=== PATIENT | male | born 1940 | race Caucasian/White ===

== ENCOUNTER → 2019-01-08 06:46 | Outpatient (CLI) | payer MEDICARE, OTHER, SELFPAY ==
--- NOTE | 2019-01-08 | DI.ECHO.S_ITS ---
[facility] +---------+ : : [address] [place] : : : : [id number] : : : : Phone: [phone]+ Echocardiogram Report + + :Name: TRAV FERRER Study Date: 01/08/2019 Height: 67 in : :[facility] Weight: 169 lb : : Gender: Male BSA: 1.9 m2 : :: 1940 Age: 78 yrs BP: 158/70 mmHg: :Reason For Study: Murmur : : Performed By: Santa Clarke : :Referring: SURINDER HALL : + + Interpretation Summary Mild concentric left ventricular hypertrophy with ejection fraction 60-65%. Grade I diastolic dysfunction. Severely dilated left atrium. Moderate to severely dilated right atrium. Severe aortic stenosis. The peak aortic velocity is 4.4 m/sec. The calculated aortic valve area is 0.7 cm2. Moderate mitral annular calcification. Mild tricuspid regurgitation. The right ventricular systolic pressure is estimated to be at least 38 mmHg based on an estimated right atrial pressure of 3 mm Hg. Procedure: A two-dimensional transthoracic echocardiogram with color flow and Doppler was performed. The study quality was technically good. There is no prior echocardiogram noted for this patient. The patient was in normal sinus rhythm during the exam. Left Ventricle: The left ventricle is normal in size. There is mild concentric left ventricular hypertrophy. The ejection fraction is estimated to be 60-65%. There are no focal wall motion abnormalities. Diastolic parameters suggest a relaxation abnormality of the left ventricle, consistent with probable normal filling pressures. Right Ventricle: The right ventricle grossly appears normal in size with probable normal systolic function. Atria: The left atrium is severely dilated. The right atrium is moderate to severely dilated. The interatrial septum is intact with no evidence for an atrial septal defect. Mitral Valve: The mitral valve is grossly normal. There is moderate mitral annular calcification. There is trace mitral regurgitation. Aortic Valve: There is severe aortic stenosis. The calculated aortic valve area is 0.7 cm2. The peak aortic velocity is 4.4 m/sec. The aortic valve mean gradient is 43 mmHg. Severity ratio is 0.23. There is trace aortic regurgitation. Tricuspid Valve: The tricuspid valve leaflets are thin and pliable. There is mild tricuspid regurgitation. The right ventricular systolic pressure is estimated to be at least 38 mmHg based on an estimated right atrial pressure of 3 mm Hg. Pulmonic Valve: The pulmonic valve is not well visualized. Great Vessels: The aortic root is normal size. The dimensions of the ascending aorta are normal. The aortic arch is normal in size. The IVC is of normal diameter and collapses greater than 50% with a sniff. This suggests a low right atrial pressure of 3 mm Hg. Pericardium/ Pleura There is no pericardial effusion. There is no pleural effusion. MMode/2D Measurements & Calculations LVIDd: 4.9 cm LVOT diam: 2.0 cm LVIDs: 3.0 cm Ao root diam: 3.6 cm FS: 38.2 % Aortic Jxn: 2.9 cm EPSS: 0.88 cm asc Aorta Diam: 3.1 cm IVSd: 0.90 cm Ao Arch Diam (Prox Trans): 2.9 cm LVPWd: 1.2 cm LV cruz. diameter/BSA (cm/m^2): 2.6 LV sys. diameter/BSA (cm/m^2): 1.6 LA dimension: 5.1 cm RA long axis: 5.1 cm LA A2 area: 32.7 cm2 RA area: 22.9 cm2 LA A4 area: 26.5 cm2 RA vol: 87.7 ml LA length (vol): 6.3 cm RA : 46.6 ml/m2 LA vol: 116.0 ml IVC diam: 1.5 cm LA vol index: 61.6 ml/m2 RVDd major: 6.8 cm RVD1 (basal): 4.2 cm RVD2 (mid): 3.8 cm Doppler Measurements & Calculations Ao V2 max: 440.4 cm/sec LVOT Max Bao: 95.3 cm/sec Ao V2 mean: 309.8 cm/sec LV V1 max P.6 mmHg Ao max P.6 mmHg LV V1 VTI: 27.8 cm Ao mean P.9 mmHg MARCOS(I,D): 0.75 cm2 Ao V2 VTI: 120.2 cm MARCOS(V,D): 0.70 cm2 sev ratio: 0.23 MARCOS indexed to BSA (cm^2/m^2): 0.40 MV E max bao: 119.1 cm/sec TR max bao: 297.1 cm/sec MV A max bao: 149.0 cm/sec TR max P.3 mmHg MV E/A: 0.80 PA V2 max: 90.3 cm/sec Med Peak E' Bao: 5.7 cm/sec PA V2 mean: 56.2 cm/sec E/E' med: 21.0 PA mean P.5 mmHg Lat Peak E' Bao: 5.3 cm/sec PA Accel Time: 0.17 sec E/E' lat: 22.6 E/e' average: 21.8 MV dec time: 0.41 sec MV P1/2t: 120.0 msec MVA(VTI): 2.0 cm2 MV V2 mean: 83.7 cm/sec MV P1/2t max bao: 119.3 cm/sec MV mean P.2 mmHg MVA(P1/2t): 1.8 cm2 MV V2 VTI: 45.0 cm SV(LVOT): 90.5 ml Electronically signed by: Lorena Zuñiga on Reading Physician:01/08/2019 10:43 AM
== END ==
PROVIDERS: Family Provider Family Medicine; PCP Family Medicine; Visit Provider Orthopaedic Surgery
DX: I08.2 Rheumatic disorders of both aortic and tricuspid valves (principal); R01.1 Cardiac murmur, unspecified
CPT/HCPCS: 93306

== ENCOUNTER 2019-02-16 19:18 | Emergency (ER) | payer MEDICARE, OTHER, SELFPAY ==
[2019-02-16 19:26] VITALS: BP 139/78; PULSE 76; RESP 18; TEMP 37; O2SAT 96
--- NOTE | 2019-02-16 19:42 | DI.US.S_ITS ---
PROCEDURE: US PERIPH VENOUS LOW EXTREM RT INDICATIONS: PHLEBITIS, RIGHT LEG PAIN TECHNIQUE: Real-time imaging, as well as color and pulse Doppler interrogation, were performed of the lower extremity deep veins from the inguinal ligament to the popliteal fossa. COMPARISON: [facility], , PVE UNILATERAL RIGHT, 09/11/2010, 13:29. FINDINGS: The common femoral, femoral and popliteal veins are patent. There is wall irregularity in the distal femoral vein and popliteal vein suspicious for chronic DVT. There is thrombosis of the greater saphenous vein. IMPRESSION: 1. 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 2. 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 The result was discussed with Dr. Rico. Dictated by: Lenin Yarbrough M.D. on 02/16/2019 at 21:36 Approved by: Lenin Yarbrough M.D. on 02/16/2019 at 21:45
--- NOTE | 2019-02-16 21:26 | ED_ITS ---
HPI - Extremity Problem General Chief complaint: Extremity Problem,Nontraumatic Stated complaint: Pain in upper leg Time Seen by Provider: 02/16/19 19:40 Source: patient and family Mode of arrival: ambulatory Limitations: no limitations History of Present Illness HPI Narrative: 78-year-old male former smoker with history of protein S deficiency and atrial fibrillation presents with multiple family members and a chief complaint of redness, warmth and tenderness to his right medial thigh in the absence of injury. The symptoms have been present over the past few days. He has extensive history of superficial thrombophlebitis and feels as if this is another occurrence. He has been on Coumadin chronically however recently had a carpal tunnel surgery on his left wrist and had not taken his Coumadin for a few days leading up to the surgery. His INR was measured earlier today and was noted to be 2.9. He denies systemic findings such as fever, chills nor nausea or vomiting. MD Complaint: extremity pain and extremity swelling Onset (ago): day(s) Pain Consistency: constant Location: right Quality: burning and aching Radiation: none Relieving factors: nothing Exacerbating factors: range of motion and palpation Associated symptoms: denies other symptoms Context: recent surgery/procedure and history of DVT Related Data Allergies Allergy/AdvReac Type Severity Reaction Status Date / Time No Known Drug Allergies Allergy Verified 02/16/19 19:30 Review of Systems Constitutional Denies chills, Denies fever(s), Denies lethargy and Denies weakness Eyes Denies change in vision, Denies eye discharge, Denies irritation and Denies loss of vision ENT Ears, Nose, Mouth, and Throat: Denies change in voice, Denies neck pain and Denies sore throat Cardiovascular Denies chest pain, Denies irregular heart rhythm, Denies lightheadedness, Denies palpitations, Denies dyspnea, Denies dyspnea on exertion and Denies orthopnea Respiratory Denies cough, Denies dyspnea, Denies dyspnea on exertion and Denies wheezing Gastrointestinal Gastrointestinal: Denies abdominal pain, Denies change in bowel habits, Denies diarrhea, Denies nausea and Denies vomiting Genitourinary Denies hematuria, Denies flank pain, Denies urinary incontinence and Denies urinary urgency Musculoskeletal Denies neck pain Integumentary/Breasts Denies pruritus, Reports erythema, Denies rash, Reports skin swelling and Denies wounds Neurologic Denies confusion, Denies loss of vision and Denies weakness Psychiatric Denies anxiety, Denies confusion, Denies depression, Denies homicidal ideation and Denies suicidal ideation Endocrine Denies palpitations Hematologic/Lymphatic Denies easy bruising Allergic/Immunologic Denies wheezing PFSH Social History Smoking Status: Former smoker Social History Smoking Status: Former smoker Exam Initial Vital Signs Initial Vital Signs: Vital Signs Temperature 98.6 F 02/16/19 19:26 Pulse Rate 76 02/16/19 19:26 Respiratory Rate 18 02/16/19 19:26 Blood Pressure 139/78 02/16/19 19:26 Pulse Oximetry 96 02/16/19 19:26 Course Orders Ordered: ED Orders 02/16/19 19:42 US perip venous low extrem rt Stat 02/16/19 19:56 Prothrombin Time INR Stat Vital Signs - 8 hr 02/16/19 21:57 Pulse Rate 65 Respiratory Rate 17 Blood Pressure 151/79 H Pulse Oximetry 94 MDM - Extremity (Nontraumatic) Lab Data Lab Results 02/16/19 Range/Units 19:56 PT 35.0 H (10.1-12.7) SECONDS INR 3.0 H (0.9-1.3) Imaging Data Venous US: Radiologist's impression: Mahesh Diaz Humberto 78 M 1940 [place] [address] Ultrasound Report Signed Patient: Mahesh Diaz RMR#: [id number] : 1940Acct:[id number] Age/Sex: 78 / MDate of Service: 02/16/19 Loc: ED Accession Number: [id number] Procedure: US [facility] venous low extrem rt Ordering Provider: Nicole Franklin P.A-C PROCEDURE: US PERIP VENOUS LOW EXTREM RT INDICATIONS: PHLEBITIS, RIGHT LEG PAIN TECHNIQUE: Real-time imaging, as well as color and pulse Doppler interrogation, were performed of the lower extremity deep veins from the inguinal ligament to the popliteal fossa. COMPARISON: [facility], , PVE UNILATERAL RIGHT, 09/11/2010, 13:29. FINDINGS: The common femoral, femoral and popliteal veins are patent. There is wall irregularity in the distal femoral vein and popliteal vein suspicious for chronic DVT. There is thrombosis of the greater saphenous vein. IMPRESSION: 1. 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 2. 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 The result was discussed with Dr. Rico. Dictated by: Lenin Yarbrough M.D. on 02/16/2019 at 21:36 Approved by: Lenin Yarbrough M.D. on 02/16/2019 at 21:45 [facility] Narrative Medical decision making narrative: 78-year-old male with history of protein S deficiency and chronic anticoagulation presents with redness, pain and warmth in the absence of injury. Imaging nose acute and chronic superficial occlusions. Acute presentation is most likely due to the his forced drug holiday as opposed to a failure in the medication. He is given return precautions and encouraged to follow closely with his provider. He has had his questions answered to his apparent satisfaction Discharge Plan Departure Patient Disposition: Home Clinical Impression: Superficial thrombophlebitis Discharge Date/Time: 02/16/19 21:58 Interventions: ED Discharge Assessment Last Done: 02/16/19 21:57 Instructions: DI for Superficial Thrombophlebitis Activity Restrictions/Additional Instructions: *You have been diagnosed with [acute superficial thrombophlebitis secondary to subtherapeutic INR] *What to do: *Take medications as directed *Follow up with your primary care provider in 2-3 days, call for an appointment. Let them know you were seen in the Emergency Department and that we ask that you be seen in follow up *Return to ER if you should have any new, worsening or concerning symptoms Referrals: Matthew Poe MD [Primary Care Provider] -
[2019-02-16 21:57] VITALS: BP 151/79; PULSE 65; RESP 17; O2SAT 94
== END 2019-02-16 21:58 | disposition home or self-care (01) ==
PROVIDERS: Internal Medicine; Emergency Provider Emergency Medicine; Family Provider Family Medicine; PCP Family Medicine
DX: I80.8 Phlebitis and thrombophlebitis of other sites (principal)
CPT/HCPCS: 36415; 85610; 93971; 99282; 99283

== ENCOUNTER 2020-10-12 16:15 | Observation (INO) | payer MEDICARE, OTHER, SELFPAY ==
[2020-10-12] VITALS (10 sets, daily range): BP systolic 118–153; BP diastolic 56–96; PULSE 60–86; RESP 18–20; TEMP 36.4–36.8; O2SAT 92–97; BMI 23.6
--- NOTE | 2020-10-12 16:28 | DI.US.S_ITS ---
PROCEDURE: US PERIPH VENOUS LOW EXTREM LT INDICATIONS: LEG SWELLING/REDNESS. PROTEIN S DEFICIENCY. HISTORY OF DVT. TECHNIQUE: Real-time imaging, as well as color and pulse Doppler interrogation, were performed of the lower extremity deep veins from the inguinal ligament to the popliteal fossa. COMPARISON: None. FINDINGS: Echogenic probable chronic nonocclusive minimal wall thrombus in the left common femoral vein. Adherent wall thrombus in the upper thigh and mid thigh portion of the femoral vein (previously referred to as superficial femoral vein), consistent with chronic thrombus. No clearly acute deep vein clot identified. Multiple calf varicosities are acutely thrombosed. IMPRESSION: 1. Nonocclusive clot in the left common femoral vein and left femoral vein (previously referred to as superficial femoral vein) is likely chronic. No definite acute deep vein clot. 2. Superficial thrombosis involving multiple calf varicosities. Dictated by: Antonio Alexander M.D. on 10/12/2020 at 16:57 Approved by: Antonio Alexander M.D. on 10/12/2020 at 17:02
[2020-10-12 16:55] LABS: Add Manual Diff / Slide Review NO; Basophils Absolute Auto 100 /uL (0-100); Basophils Percent Auto 0.7 % (0-2); Eosinophils Absolute Auto 100 /uL (0-450); Eosinophils Percent Auto 1.7 % (2-4); Hematocrit 41.8 % (41-53); Hemoglobin 14.2 g/dL (13.5-17.5); Lymphocytes Absolute Auto 1500 /uL (1100-4500); Lymphocytes Percent Auto 18.8 % (25-40); Mean Corpuscular HGB Conc 34.1 % (30-36); Mean Corpuscular Volume 90.9 fL (80-100); Monocytes Absolute Auto 1000 /uL (0-900); Monocytes Percent Auto 12.4 % (3-14); Neutrophils Absolute Auto 5100 /uL (1500-7000); Neutrophils Percent Auto 66.4 % (50-75); Platelet Count 227 X10^3/uL (150-400); Red Cell Distribution Width 15.3 % (11.6-14.8); White Blood Cell Count 7.7 X10^3/uL (4.5-11.0)
[2020-10-12 16:58] LABS: INR 2.3 (0.9-1.3); Prothrombin Time 26.1 SECONDS (10.1-12.7)
[2020-10-12 17:00] LABS: PTT Partial Thromboplastin Tim 38 SECONDS (26.4-36.2)
[2020-10-12 17:03] LABS: Alanine Aminotransferase 13 IU/L (<50); Albumin 3.8 g/dL (3.5-5.0); Albumin Globulin Ratio 1.1 (1.0-2.8); Alkaline Phosphatase 76 U/L (38-126); Aspartate Aminotransferase 20 IU/L (17-59); BUN Creatinine Ratio 13.8 (6-22); Bilirubin Total 0.4 mg/dL (0.2-1.3); Blood Urea Nitrogen 17 mg/dL (9-20); Calcium 9.1 mg/dL (8.4-10.2); Carbon Dioxide 25 mmol/L (22-32); Chloride 106 mmol/L (98-107); Estimated Glomerular Filt Rate 56.5 mL/min (>60); Globulin 3.6 g/dL (1.7-4.1); Glucose 233 mg/dL (80-110); HEMOLYSIS < 15 (0-50); Potassium 3.6 mmol/L (3.4-5.1); Sodium 138 mmol/L (137-145); Total Protein 7.4 g/dL (6.3-8.2)
--- NOTE | 2020-10-12 17:25 | ED_ITS ---
HPI - Extremity Injury (Lower) <MILLI Henson - Last Filed: 10/12/20 19:19> General Chief Complaint: Extremity Injury, Lower Stated Complaint: states left leg DVT Time Seen by Provider: 10/12/20 16:17 Source: patient Mode of arrival: Ambulatory Limitations: no limitations History of Present Illness HPI Narrative: The patient is a delightful 80-year-old male current smoker with history of protein S deficiency on Coumadin who presents with a chief complaint of a possible DVT in his left leg. States he has a history of clots. He states he most recently had a deep vein thrombosis in the , though has had multiple superficial clots since. He denies any recent breaks in his Coumadin dosing. He most recently had his INR checked at 2.4 last week. However he has had erythema and pain to palpation and swelling of his left lower leg for the past 3 days. He denies any chest pain or shortness of breath. He does wear compression sock which she states helps. He states gets more swollen after he walks on it. The patient states that the only medications he takes daily are amlodipine, Coumadin, vitamin-D and an allergy medicine. His primary care provider is Dr Poe. He has had a knee replacement and carpal tunnel surgery Related Data Home Medications Medication Instructions Recorded Confirmed amlodipine 5 mg PO DAILY 10/12/20 10/12/20 cholecalciferol (vitamin D3) 25 mcg PO DAILY 10/12/20 10/12/20 [Vitamin D3] diphenhydramine HCl [Benadryl] 25 mg PO DAILY 10/12/20 10/12/20 vit A-vit C-vit [id number] [Eye 1 tab PO DAILY 10/12/20 10/12/20 Vitamin and Minerals] warfarin 7.5 mg PO DAILY 10/12/20 10/12/20 Allergies Allergy/AdvReac Type Severity Reaction Status Date / Time No Known Drug Allergies Allergy Verified 10/12/20 16:24 Review of Systems <MILLI Henson - Last Filed: 10/12/20 19:19> Review of Systems Narrative: GENERAL: Denies chills, fatigue, malaise, fever, sweats. HEENT: Denies sinus pain, ear pain, sore throat, difficulty swallowing, dizziness. RESPIRATORY: Denies dyspnea, cough, wheezing, hemoptysis, sputum. CARDIOVASCULAR: Denies chest pain, palpitations, orthopnea, edema, GASTROINTESTINAL: Denies nausea, vomiting, abdominal pain, diarrhea, constipation, melena. : Denies dysuria, frequency, incontinence, hematuria, urinary retention. MUSCULOSKELETAL: See HPI SKIN: See HPI NEUROLOGIC: Denies weakness, headache, numbness, change in speech, confusion, seizures, incoordination. PSYCHIATRIC: No concerning psychosocial issues. 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 DVT (deep venous thrombosis) Left leg swelling Protein S deficiency Superficial thrombophlebitis Surgical History (Updated 10/12/20 @ 23:19 by JOCELYNE Rivers) History of carpal tunnel surgery History of total knee arthroplasty Family History (Updated 10/12/20 @ 23:21 by JOCELYNE Rivers) Father No significant past medical history Mother Protein S deficiency Son Protein S deficiency Brother Protein S deficiency Pulmonary embolism Social History household members: none Smoking Status: Former smoker Smoking Status: Former smoker alcohol intake frequency: 0-2 drinks per day Substance Use Type: does not use Exam <MADELINE Henson- - Last Filed: 10/12/20 19:19> Narrative Exam Narrative: GENERAL: This is a well-nourished, well-developed patient, in no acute distress HEAD: Atraumatic. Normocephalic. No temporal or scalp tenderness. EYES: Pupils equal round and reactive. Extraocular motions intact. No scleral icterus. No injection or drainage. ENT: Nose without bleeding, purulent drainage or septal hematoma. Wearing a mask. Airway patent. NECK: Trachea midline. No JVD or lymphadenopathy. Supple, nontender, no meningeal signs. CARDIOVASCULAR: Regular rate and regular rhythm RESPIRATORY: Clear to auscultation. Breath sounds equal bilaterally. No wheezes, rales, or rhonchi. No cough. No increased respiratory effort. No accessory muscle use. EXTREMITIES: Line and erythema and pain to palpation noted on medial aspect of left lower leg, extending from ankle almost to the knee. Positive pedal pulses. BACK: Nontender without deformity or crepitance. No flank tenderness. NEURO: AOx3. SKIN: See extremity exam Initial Vital Signs Initial Vital Signs: Vital Signs Temperature 97.5 F L 10/12/20 16:17 Pulse Rate 86 10/12/20 16:17 Respiratory Rate 18 10/12/20 16:17 Blood Pressure 153/76 H 10/12/20 16:17 Pulse Oximetry 94 10/12/20 16:17 <Katie Chavarria MD - Last Filed: 10/13/20 02:18> Initial Vital Signs Initial Vital Signs: Vital Signs Temperature 97.5 F L 10/12/20 16:17 Pulse Rate 86 10/12/20 16:17 Respiratory Rate 18 10/12/20 16:17 Blood Pressure 153/76 H 10/12/20 16:17 Pulse Oximetry 94 10/12/20 16:17 Scores <MILLI Henson - Last Filed: 10/12/20 19:19> GCS [place] coma scale eye opening: Spontaneous [place] coma scale verbal response: Orientated [place] coma scale motor response: Obey commands [place] coma scale total score: 15 Course <MILLI Henson - Last Filed: 10/12/20 19:19> Orders Ordered: ED Orders 10/12/20 17:41 CT angio chest PE protocol Stat 10/12/20 17:55 COVID19 Stat Acetaminophen (Acetaminophen 325 Mg Tablet) 650 mg PO Q6HR PRN PRN Reason: Fever/Mild Pain (1-3) Al Hydrox/Mg Hydrox/Simethicone (Mag Hydrox/Alum/Simeth 30 Ml Udc) 30 ml PO Q6HR PRN PRN Reason: Dyspepsia Amlodipine Besylate (Amlodipine 5 Mg Tablet) 5 mg PO DAILY [facility] Bisacodyl (Bisacodyl 10 Mg Supp) 10 mg [place] DAILY PRN PRN Reason: Constipation Calcium Carbonate (Calcium Carbonate 500 Mg Tab) 1,000 mg PO Q4HR PRN PRN Reason: Dyspepsia Dextrose (Dextrose 50 % In Water 25 Gm/50 Ml Syringe) 25 gm IV PRN PRN; Protocol PRN Reason: Hypoglycemia Docusate Sodium (Docusate 100 Mg Capsule) 100 mg PO BID PRN PRN Reason: Constipation Heparin Sodium/Dextrose (Heparin Drip) 25,000 unit in 500 mls @ 24 mls/hr IV CONT [facility]; Protocol Last Admin: 10/12/20 19:35 Dose: 1,200 units/hr, 24 mls/hr Documented by: ANASTASIA Insulin Aspart (Insulin Aspart 100 Unit/Ml Insuln Pen) 0 unit SUBCUT ACHS [facility]; Protocol Last Admin: 10/12/20 21:14 Dose: Not Given Documented by: ANASTASIA Naloxone HCl (Naloxone 0.4 Mg/Ml Vial) 0.2 mg IV Q2MIN PRN PRN Reason: Opiate Reversal Ondansetron HCl (Ondansetron 4 Mg/2 Ml Inj) 4 mg IV Q8HR PRN PRN Reason: Nausea And Vomiting Oxycodone HCl (Oxycodone Ir 5 Mg Tablet) 5 mg PO Q6HR PRN PRN Reason: Pain, Moderate (4-6) Sodium Chloride (Sodium Chloride 0.9% Flush) 10 ml IV PRN PRN PRN Reason: Flush Sodium Chloride (Sodium Chloride 0.9% Flush) 10 ml IV BID [facility] Last Admin: 10/12/20 21:04 Dose: Not Given Documented by: ANASTASIA Warfarin Sodium (Warfarin 5 Mg Tablet) 7.5 mg PO DAILY@1700 [facility] Discontinued Medications Heparin Sodium/Dextrose (Heparin Drip) 25,000 unit in 500 mls @ 24 mls/hr IV CONT [facility]; Protocol Last Titration: 10/12/20 19:43 Dose: 0 units/hr, 0 mls/hr Documented by: Admin: 10/12/20 18:52 Dose: 1,200 units/hr, 24 mls/hr Documented by: TONE Warfarin Sodium (Warfarin 5 Mg Tablet) 7.5 mg PO NOW ONE Stop: 10/12/20 23:00 Reevaluation(s) Reevaluation #1: I discussed with the patient that he had a positive ultrasound for DVT, suggested CT to evaluate for pulmonary embolism, likelihood further anticoagulation possible admission. He is okay without as that is why he came to the hospital today. Time: 17:44 Vital Signs Vital signs: Vital Signs - 8 hr 10/12/20 18:30 Pulse Rate 64 Pulse Oximetry 95 <Katie Chavarria MD - Last Filed: 10/13/20 02:18> Orders Ordered: ED Orders 10/12/20 17:41 CT angio chest PE protocol Stat 10/12/20 17:55 COVID19 Stat Acetaminophen (Acetaminophen 325 Mg Tablet) 650 mg PO Q6HR PRN PRN Reason: Fever/Mild Pain (1-3) Al Hydrox/Mg Hydrox/Simethicone (Mag Hydrox/Alum/Simeth 30 Ml Udc) 30 ml PO Q6HR PRN PRN Reason: Dyspepsia Amlodipine Besylate (Amlodipine 5 Mg Tablet) 5 mg PO DAILY [facility] Bisacodyl (Bisacodyl 10 Mg Supp) 10 mg WA DAILY PRN PRN Reason: Constipation Calcium Carbonate (Calcium Carbonate 500 Mg Tab) 1,000 mg PO Q4HR PRN PRN Reason: Dyspepsia Dextrose (Dextrose 50 % In Water 25 Gm/50 Ml Syringe) 25 gm IV PRN PRN; Protocol PRN Reason: Hypoglycemia Docusate Sodium (Docusate 100 Mg Capsule) 100 mg PO BID PRN PRN Reason: Constipation Heparin Sodium/Dextrose (Heparin Drip) 25,000 unit in 500 mls @ 24 mls/hr IV CONT [facility]; Protocol Last Admin: 10/12/20 19:35 Dose: 1,200 units/hr, 24 mls/hr Documented by: LVCHAYITO Insulin Aspart (Insulin Aspart 100 Unit/Ml Insuln Pen) 0 unit SUBCUT ACHS [facility]; Protocol Last Admin: 10/12/20 21:14 Dose: Not Given Documented by: LVAZQUE Naloxone HCl (Naloxone 0.4 Mg/Ml Vial) 0.2 mg IV Q2MIN PRN PRN Reason: Opiate Reversal Ondansetron HCl (Ondansetron 4 Mg/2 Ml Inj) 4 mg IV Q8HR PRN PRN Reason: Nausea And Vomiting Oxycodone HCl (Oxycodone Ir 5 Mg Tablet) 5 mg PO Q6HR PRN PRN Reason: Pain, Moderate (4-6) Sodium Chloride (Sodium Chloride 0.9% Flush) 10 ml IV PRN PRN PRN Reason: Flush Sodium Chloride (Sodium Chloride 0.9% Flush) 10 ml IV BID [facility] Last Admin: 10/12/20 21:04 Dose: Not Given Documented by: LVAZQUE Warfarin Sodium (Warfarin 5 Mg Tablet) 7.5 mg PO DAILY@1700 [facility] Discontinued Medications Heparin Sodium/Dextrose (Heparin Drip) 25,000 unit in 500 mls @ 24 mls/hr IV CONT [facility]; Protocol Last Titration: 10/12/20 19:43 Dose: 0 units/hr, 0 mls/hr Documented by: Admin: 10/12/20 18:52 Dose: 1,200 units/hr, 24 mls/hr Documented by: TONE Warfarin Sodium (Warfarin 5 Mg Tablet) 7.5 mg PO NOW ONE Stop: 10/12/20 23:00 Vital Signs Vital signs: Vital Signs - 8 hr 10/12/20 18:30 Pulse Rate 64 Pulse Oximetry 95 MDM - Extremity Injury (Lower) <MADELINE Henson- - Last Filed: 10/12/20 19:19> Lab Data Attestation: I reviewed the patient's lab results. Result diagrams: 10/12/20 16:40 10/12/20 16:40 Labs: Lab Results 10/12/20 10/12/20 10/12/20 Range/Units 16:40 16:40 16:40 WBC 7.7 (4.5-11.0) X10^3/uL RBC 4.60 (4.5-5.9) X10^6/uL Hgb 14.2 (13.5-17.5) g/dL Hct 41.8 (41-53) % MCV 90.9 (80-100) fL MCH 31.0 (26-34) PG MCHC 34.1 (30-36) % RDW 15.3 H (11.6-14.8) % Plt Count 227 (150-400) X10^3/uL Neut % (Auto) 66.4 (50-75) % Lymph % (Auto) 18.8 L (25-40) % [place] % (Auto) 12.4 (3-14) % Eos % (Auto) 1.7 L (2-4) % Baso % (Auto) 0.7 (0-2) % Neut # (Auto) 5100 (0662-6007) /uL Lymph # (Auto) 1500 (5625-4142) /uL [place] # (Auto) 1000 H (0-900) /uL Eos # (Auto) 100 (0-450) /uL Baso # (Auto) 100 (0-100) /uL PT 26.1 H (10.1-12.7) SECONDS INR 2.3 H (0.9-1.3) APTT 38 H (26.4-36.2) SECONDS Sodium 138 (137-145) mmol/L Potassium 3.6 (3.4-5.1) mmol/L Chloride 106 (98-107) mmol/L Carbon Dioxide 25 (22-32) mmol/L BUN 17 (9-20) mg/dL Creatinine 1.23 (0.66-1.25) mg/dL Estimated GFR 56.5 L (>60) mL/min BUN/Creatinine Ratio 13.8 (6-22) Glucose 233 H (80-110) mg/dL Calcium 9.1 (8.4-10.2) mg/dL Magnesium (1.6-2.3) mg/dL Total Bilirubin 0.4 (0.2-1.3) mg/dL AST 20 (17-59) IU/L ALT 13 (<50) IU/L Alkaline Phosphatase 76 (38-126) U/L Total Protein 7.4 (6.3-8.2) g/dL Albumin 3.8 (3.5-5.0) g/dL Globulin 3.6 (1.7-4.1) g/dL Albumin/Globulin Ratio 1.1 (1.0-2.8) SARS-CoV-2 (PCR) (Negative) 10/12/20 10/12/20 Range/Units 16:40 17:55 WBC (4.5-11.0) X10^3/uL RBC (4.5-5.9) X10^6/uL Hgb (13.5-17.5) g/dL Hct (41-53) % MCV (80-100) fL MCH (26-34) PG MCHC (30-36) % RDW (11.6-14.8) % Plt Count (150-400) X10^3/uL Neut % (Auto) (50-75) % Lymph % (Auto) (25-40) % [place] % (Auto) (3-14) % Eos % (Auto) (2-4) % Baso % (Auto) (0-2) % Neut # (Auto) (4346-4495) /uL Lymph # (Auto) (0038-6040) /uL [place] # (Auto) (0-900) /uL Eos # (Auto) (0-450) /uL Baso # (Auto) (0-100) /uL PT (10.1-12.7) SECONDS INR (0.9-1.3) APTT (26.4-36.2) SECONDS Sodium (137-145) mmol/L Potassium (3.4-5.1) mmol/L Chloride (98-107) mmol/L Carbon Dioxide (22-32) mmol/L BUN (9-20) mg/dL Creatinine (0.66-1.25) mg/dL Estimated GFR (>60) mL/min BUN/Creatinine Ratio (6-22) Glucose (80-110) mg/dL Calcium (8.4-10.2) mg/dL Magnesium 2.2 (1.6-2.3) mg/dL Total Bilirubin (0.2-1.3) mg/dL AST (17-59) IU/L ALT (<50) IU/L Alkaline Phosphatase (38-126) U/L Total Protein (6.3-8.2) g/dL Albumin (3.5-5.0) g/dL Globulin (1.7-4.1) g/dL Albumin/Globulin Ratio (1.0-2.8) SARS-CoV-2 (PCR) Negative (Negative) Imaging Data US - DVT: Radiologist's Impression: [address] [place] [id number] ReportSigned Patient: Mahesh Diaz R#: [id number]: 1940Acct:[id number]/Sex: 80 / MDate of Service: 10/12/20Loc: EDAccession Number: [id number] Procedure: US periph venous low extrem lt Ordering Provider: Lolly Orellana PROCEDURE: US PERIPH VENOUS LOW EXTREM LT INDICATIONS: LEG SWELLING/REDNESS. PROTEIN S DEFICIENCY. HISTORY OF DVT. TECHNIQUE: Real-time imaging, as well as color and pulse Doppler interrogation, were performed of the lower extremity deep veins from the inguinal ligament to the popliteal fossa. COMPARISON: None. FINDINGS: Echogenic probable chronic nonocclusive minimal wall thrombus in the left common femoral vein. Adherent wall thrombus in the upper thigh and mid thigh portion of the femoral vein (previously referred to as superficial femoral vein), consistent with chronic thrombus. No clearly acute deep vein clot identified. Multiple calf varicosities are acutely thrombosed. IMPRESSION: 1. Nonocclusive clot in the left common femoral vein and left femoral vein (previously referred to as superficial femoral vein) is likely chronic. No definite acute deep vein clot. 2. Superficial thrombosis involving multiple calf varicosities. Dictated by: Antonio Alexander M.D. on 10/12/2020 at 16:57 Approved by: Antonio Alexander M.D. on 10/12/2020 at 17:02 Chest x-ray: Radiologist's Impression: [address] [id number] Scan ReportSigned Patient: Mahesh Diaz RMR#: [id number]: 1940Acct:[id number]/Sex: 80 / MDate of Service: 10/12/20Loc: [id number] Number: [id number] Procedure: CT angio chest PE protocol Ordering Provider: Lolly Orellana [facility] PROCEDURE: CT ANGIO CHEST PE PROTOCOL INDICATIONS: + dvt, protein s, 92% RA TECHNIQUE: After the administration of intravenous contrast, 2 mm thick sections acquired from the pulmonary apices to the posterior costophrenic angles. 3-dimensional maximum intensity projection (MIP) coronal and sagittal reformats were then acquired through the thorax. For radiation dose reduction, the following was used: automated exposure control, adjustment of mA and/or kV according to patient size. COMPARISON: None. FINDINGS: Image quality: Excellent. Pulmonary arteries: Pulmonary arteries are normal in size, and demonstrate no intraluminal filling defects to suggest central pulmonary embolism. Lungs and pleura: Irregular peripheral subpleural patchy airspace opacity mixed with small cystic changes is present in the posterolateral right lower lung along with a course granuloma. Minor atelectasis in the left posterior lower lobe. No pleural effusions or pneumothorax. There is a 6 mm endobronchial nodule in the right mainstem bronchus along the posterior wall versus dependent mucus. Central and peripheral airways are otherwise patent. Mediastinum: Heart size is moderately enlarged with heavy coronary artery calc ification, aortic valvular, and mitral annular calcification. No pericardial effusion. There are several nonenlarged calcified mediastinal and right hilar lymph nodes. No mediastinal or hilar adenopathy. Thoracic aorta is normal in caliber and enhancement. Esophagus is normal in caliber, without hiatal hernia. Bones and chest wall: No suspicious bony lesions. There is a healing deformity of the mid sternum. There is bridging callus along the inner cortex. Ribs and thoracic spine appear intact throughout. Thyroid gland is normal. No axillary or supraclavicular adenopathy. Abdomen: Visualized upper abdomen demonstrates granulomatous changes present in the spleen, a cystic mass in the left upper quadrant of uncertain etiology, and heavy atherosclerosis. IMPRESSION: 1. No pulmonary emboli. 2. Solid and cystic airspace disease is present at the posterolateral right lung base suggesting infection or inflammation. No pleural effusion. 3. Mild cardiomegaly with coronary and valvular calcification. 4. Exposure of remote granulomatous disease. 5. 6 mm right mainstem endobronchial nodule, most likely mucous. Follow-up chest CT after resolution of acute illness is recommended. Dictated by: Yahaira Gipson M.D. on 10/12/2020 at 18:46 Approved by: Yahaira Gipson M.D. on 10/12/2020 at 18:56 [facility] Narrative Medical decision making narrative: The patient is an 80-year-old male with history of protein S deficiency who presents with a chief complaint of pain and swelling of his left lower leg. His INR is in his therapeutic range today at 2.3. Ultrasound is concerning for multiple superficial thromboses as well as an acute versus chronic femoral vein clot. However the patient has recently been symptomatic over the past 3 days. I spoke with Dr. Barber of the hospitalists regarding the patient, we elected to admit him to inpatient status. Per hospitalist a preference, he was started on a heparin drip with no bolus as he is on Coumadin therapeutic range at this point in time. Per [facility] policy for DVT, he was started at 1200 units per hour. CTA was obtained to help rule out pulmonary embolism given his ultrasound findings, and this was pending upon acceptance for admission. Ruff test is negative. The patient states understanding and appreciation. No questions or concerns regarding admission. He has been hemodynamically stable throughout his stay in the ER, very interactive and pleasant. <Katie Chavarria MD - Last Filed: 10/13/20 02:18> Lab Data Labs: Lab Results 03/07/21 03/07/21 03/07/21 Range/Units 16:40 16:40 16:40 WBC 7.7 (4.5-11.0) X10^3/uL RBC 4.60 (4.5-5.9) X10^6/uL Hgb 14.2 (13.5-17.5) g/dL Hct 41.8 (41-53) % MCV 90.9 (80-100) fL MCH 31.0 (26-34) PG MCHC 34.1 (30-36) % RDW 15.3 H (11.6-14.8) % Plt Count 227 (150-400) X10^3/uL Neut % (Auto) 66.4 (50-75) % Lymph % (Auto) 18.8 L (25-40) % [place] % (Auto) 12.4 (3-14) % Eos % (Auto) 1.7 L (2-4) % Baso % (Auto) 0.7 (0-2) % Neut # (Auto) 5100 (4404-4118) /uL Lymph # (Auto) 1500 (7826-3141) /uL [place] # (Auto) 1000 H (0-900) /uL Eos # (Auto) 100 (0-450) /uL Baso # (Auto) 100 (0-100) /uL PT 26.1 H (10.1-12.7) SECONDS INR 2.3 H (0.9-1.3) APTT 38 H (26.4-36.2) SECONDS Sodium 138 (137-145) mmol/L Potassium 3.6 (3.4-5.1) mmol/L Chloride 106 (98-107) mmol/L Carbon Dioxide 25 (22-32) mmol/L BUN 17 (9-20) mg/dL Creatinine 1.23 (0.66-1.25) mg/dL Estimated GFR 56.5 L (>60) mL/min BUN/Creatinine Ratio 13.8 (6-22) Glucose 233 H (80-110) mg/dL Calcium 9.1 (8.4-10.2) mg/dL Magnesium (1.6-2.3) mg/dL Total Bilirubin 0.4 (0.2-1.3) mg/dL AST 20 (17-59) IU/L ALT 13 (<50) IU/L Alkaline Phosphatase 76 (38-126) U/L Total Protein 7.4 (6.3-8.2) g/dL Albumin 3.8 (3.5-5.0) g/dL Globulin 3.6 (1.7-4.1) g/dL Albumin/Globulin Ratio 1.1 (1.0-2.8) SARS-CoV-2 (PCR) (Negative) 10/12/20 10/12/20 Range/Units 16:40 17:55 WBC (4.5-11.0) X10^3/uL RBC (4.5-5.9) X10^6/uL Hgb (13.5-17.5) g/dL Hct (41-53) % MCV (80-100) fL MCH (26-34) PG MCHC (30-36) % RDW (11.6-14.8) % Plt Count (150-400) X10^3/uL Neut % (Auto) (50-75) % Lymph % (Auto) (25-40) % [place] % (Auto) (3-14) % Eos % (Auto) (2-4) % Baso % (Auto) (0-2) % Neut # (Auto) (0739-3814) /uL Lymph # (Auto) (3520-9557) /uL [place] # (Auto) (0-900) /uL Eos # (Auto) (0-450) /uL Baso # (Auto) (0-100) /uL PT (10.1-12.7) SECONDS INR (0.9-1.3) APTT (26.4-36.2) SECONDS Sodium (137-145) mmol/L Potassium (3.4-5.1) mmol/L Chloride (98-107) mmol/L Carbon Dioxide (22-32) mmol/L BUN (9-20) mg/dL Creatinine (0.66-1.25) mg/dL Estimated GFR (>60) mL/min BUN/Creatinine Ratio (6-22) Glucose (80-110) mg/dL Calcium (8.4-10.2) mg/dL Magnesium 2.2 (1.6-2.3) mg/dL Total Bilirubin (0.2-1.3) mg/dL AST (17-59) IU/L ALT (<50) IU/L Alkaline Phosphatase (38-126) U/L Total Protein (6.3-8.2) g/dL Albumin (3.5-5.0) g/dL Globulin (1.7-4.1) g/dL Albumin/Globulin Ratio (1.0-2.8) SARS-CoV-2 (PCR) Negative (Negative) Discharge Plan Departure Patient Disposition: Admitted As Inpatient Clinical Impression: DVT (deep venous thrombosis), Protein S deficiency Admit Date/Time: 10/12/20 18:47 Admit Provider: Cory Barber <Katie Chavarria MD - Last Filed: 10/13/20 02:18> Cosign ED Attending Cosignature Attestation: I was immediately available in the department for consultation throughout this patient's visit. I agree with documentation as above. Katie Chavarria MD
--- NOTE | 2020-10-12 17:41 | DI.CT.S_ITS ---
PROCEDURE: CT ANGIO CHEST PE PROTOCOL INDICATIONS: + dvt, protein s, 92% RA TECHNIQUE: After the administration of intravenous contrast, 2 mm thick sections acquired from the pulmonary apices to the posterior costophrenic angles. 3-dimensional maximum intensity projection (MIP) coronal and sagittal reformats were then acquired through the thorax. For radiation dose reduction, the following was used: automated exposure control, adjustment of mA and/or kV according to patient size. COMPARISON: None. FINDINGS: Image quality: Excellent. Pulmonary arteries: Pulmonary arteries are normal in size, and demonstrate no intraluminal filling defects to suggest central pulmonary embolism. Lungs and pleura: Irregular peripheral subpleural patchy airspace opacity mixed with small cystic changes is present in the posterolateral right lower lung along with a course granuloma. Minor atelectasis in the left posterior lower lobe. No pleural effusions or pneumothorax. There is a 6 mm endobronchial nodule in the right mainstem bronchus along the posterior wall versus dependent mucus. Central and peripheral airways are otherwise patent. Mediastinum: Heart size is moderately enlarged with heavy coronary artery calcification, aortic valvular, and mitral annular calcification. No pericardial effusion. There are several nonenlarged calcified mediastinal and right hilar lymph nodes. No mediastinal or hilar adenopathy. Thoracic aorta is normal in caliber and enhancement. Esophagus is normal in caliber, without hiatal hernia. Bones and chest wall: No suspicious bony lesions. There is a healing deformity of the mid sternum. There is bridging callus along the inner cortex. Ribs and thoracic spine appear intact throughout. Thyroid gland is normal. No axillary or supraclavicular adenopathy. Abdomen: Visualized upper abdomen demonstrates granulomatous changes present in the spleen, a cystic mass in the left upper quadrant of uncertain etiology, and heavy atherosclerosis. IMPRESSION: 1. No pulmonary emboli. 2. Solid and cystic airspace disease is present at the posterolateral right lung base suggesting infection or inflammation. No pleural effusion. 3. Mild cardiomegaly with coronary and valvular calcification. 4. Exposure of remote granulomatous disease. 5. 6 mm right mainstem endobronchial nodule, most likely mucous. Follow-up chest CT after resolution of acute illness is recommended. Dictated by: Yahaira Gipson M.D. on 10/12/2020 at 18:46 Approved by: Yahaira Gipson M.D. on 10/12/2020 at 18:56
[2020-10-12 18:21] LABS: COVID19 -Nasal RAPID Negative (Negative)
[2020-10-12] MEDS: HEPARIN DRIP 25,000 UNIT/500 ML IV.SOLN 24 UNIT IV ×2 (18:52→19:35)
[2020-10-12 20:47] LABS: Magnesium 2.2 mg/dL (1.6-2.3)
--- NOTE | 2020-10-12 21:16 | PC.ADMIT ---
[address] [facility] Admission Note: Patient arrived to unit at 1935, patient A&O, VSS, RA 95%, complaint of discomfort to LLE with ambulation, patient denies need for pain medication. Safety hand off of Heparin gtt with ER Nurse Emerita, heparin gtt infusing per order at 1200units/hr or 24mls/hr. Heparin gtt initiated at 1852 in ER, per heparin infusion protocol repeat PTT 6hr post heparin gtt initiation. Repeat PTT scheduled for 10/13/20 at 0100, hospitalist Wisam Amato updated and aware. The patient was given written information regarding hospital policies, unit procedures and contact persons. No questions or concerns, will continue to monitor and update oncoming nightclub manager RN. Vital Signs - 8 hr 10/12/20 16:17 10/12/20 16:27 10/12/20 16:30 Temperature 97.5 F L Pulse Rate 86 81 84 Respiratory Rate 18 Blood Pressure 153/76 H 129/60 Pulse Oximetry 94 94 92 10/12/20 17:00 10/12/20 17:30 10/12/20 18:09 Temperature Pulse Rate 73 68 68 Respiratory Rate Blood Pressure 118/56 L 127/61 Pulse Oximetry 92 93 97 10/12/20 18:30 10/12/20 18:52 10/12/20 19:35 Temperature 98.2 F Pulse Rate 64 64 60 Respiratory Rate 20 Blood Pressure 153/96 H 153/74 H Pulse Oximetry 95 94 95
--- NOTE | 2020-10-12 22:30 | P.HP_ITS ---
History of Present Illness History of Present Illness Date Patient Seen: 10/12/20 Time Patient Seen: 22:30 Chief complaint: states left leg DVT Narrative: Mr. 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 The patient states that his pain and swelling has been increasing over the last 3-4 days is consistent with prior presentation of his superficial thrombophlebitis of left leg. Denies complaints of shortness of breath no chest pain no nausea vomiting. He states he has had no missed doses of his Coumadin and his INR was 2.4 last week. He had a similar episode where he was seen in the emergency room in January 2019 after you have been off Coumadin for wrist surgery. Patient has been typically active walking 2.5 miles a day however he has had decreased ambulation over last few weeks now presenting with pain on walking. The patient has had no recent complaints of fevers or chills flu or cold symptoms and no known COVID-19 exposures. Denies headaches or dizziness nasal congestion or sore throat. He denies chest pain or pressure, denies palpitations, no shortness of breath, cough or wheezing. He reports no epigastric or abdominal pain and has no nausea vomiting or change in bowel or bladder habits. He does have chronic swelling of the left lower leg for which she uses a thigh-high compression stocking on the left side only. As stated the patient's typically active however less so in recent weeks. He has no other provocative events for reoccurrence of his thrombophlebitis. The patient does add that received a 2nd [email or web address] COVID-19 vaccination on 10/01/2020. Upon arrival to the ER the patient is afebrile with temperature 97.5?, heart rate of 86, pressure 153/76, respirations 18 saturating 94% on room air. A venous ultrasound obtained which is positive for DVT, nonocclusive clot the left common femoral vein that appears chronic and superficial thrombophlebitis with multiple calf varicosities, no definite acute deep vein clot. CT of chest finds no PE, solid cystic appearing disease left lower lung, cardiomyopathy. On laboratory studies his white count of 7.7, hemoglobin 14.2, hematocrit of 41.8 and platelets of 227. He has a PT of 20.1, INR 2.3, PTT of 38. His chemistries are unremarkable though he has a potassium of 3.6. His BUN is 17 is creatinine 1.23. His glucose is 233. His EGFR is 56.2. His liver functions are all within normal limits with an human of a 3.8. Within history of atrial fibrillation 12 lead EKG is ordered as well as magnesium level. COVID-19 screening is negative. In the ER the patient is started on heparin drip without bolus since he has been on Coumadin. The patient is admitted to the hospitalist service for acute unprovoked superficial thrombophlebitis with chronic appearing common femoral vein DVT. Patient History Medical History (Updated 10/12/20 @ 23:18 by JOCELYNE Rivers) Atrial fibrillation Current use of exterminator termite anticoagulation DVT (deep venous thrombosis) Left leg swelling Protein S deficiency Superficial thrombophlebitis Surgical History (Updated 10/12/20 @ 23:19 by JOCELYNE Rivers) History of carpal tunnel surgery History of total knee arthroplasty Family & Social History Family History (Updated 10/12/20 @ 23:21 by JOCELYNE Rivers) Father No significant past medical history Mother Protein S deficiency Son Protein S deficiency Brother Protein S deficiency Pulmonary embolism Social History: household members none Prior Living Arrangements House Safety & Behavioral: Feels Safe in Current Yes Environment Been Physically Hurt or No Threatened By a Person Suicidal Ideation Description None Suicide Plan Description No Plan Tobacco & Substance use: Smoking Status Former smoker alcohol intake frequency 0-2 drinks per day Substance Use Type does not use Meds Home Medications and Allergies Home Medications Medication Instructions Recorded Confirmed Type amlodipine 5 mg PO DAILY 10/12/20 10/12/20 History cholecalciferol (vitamin D3) 25 mcg PO DAILY 10/12/20 10/12/20 History [Vitamin D3] diphenhydramine HCl [Benadryl] 25 mg PO DAILY 10/12/20 10/12/20 History vit A-vit C-vit [id number] [Eye 1 tab PO DAILY 10/12/20 10/12/20 History Vitamin and Minerals] warfarin 7.5 mg PO DAILY 10/12/20 10/12/20 History Allergies Allergy/AdvReac Type Severity Reaction Status Date / Time No Known Drug Allergies Allergy Verified 10/12/20 16:24 Review of Systems Review of Systems ROS: Yes All systems reviewed with the patient and are negative except as otherwise documented Exam Vital Signs (past 8 hours): - 10/12/20 16:17 10/12/20 16:27 10/12/20 16:30 Temperature 97.5 F L Pulse Rate 86 81 84 Respiratory Rate 18 Blood Pressure 153/76 H 129/60 Pulse Oximetry 94 94 92 10/12/20 17:00 10/12/20 17:30 10/12/20 18:09 Temperature Pulse Rate 73 68 68 Respiratory Rate Blood Pressure 118/56 L 127/61 Pulse Oximetry 92 93 97 10/12/20 18:30 10/12/20 18:52 10/12/20 19:35 Temperature 98.2 F Pulse Rate 64 64 60 Respiratory Rate 20 Blood Pressure 153/96 H 153/74 H Pulse Oximetry 95 94 95 Oxygen Delivery Method Room Air Oxygen Flow Rate 0 Narrative Exam Narrative: GENERAL APPEARANCE: well developed, well nourished, in no acute distress. HEENT: Normocephalic, PERRLA, conjunctiva clear, EOMs intact without nystagmus, no sinus tenderness to percussion, no rhinorrhea, mucous membranes are moist and pink without lesions or exudate. NECK/THYROID: neck supple, no JVD, no carotid bruit, no thyromegaly, trachea midline. LYMPH NODES: no cervical or supraclavicular lymphadenopathy. SKIN: [place], warm and dry, no visible lesions, rashes, ulcerations or petechiae. HEART: Bradycardic rate and regular rhythm, S1-S2, 2/6 systolic murmur, no rubs or gallops, brisk capillary refill, no edema LUNGS: clear to auscultation bilaterally, no coarseness crackles or wheezing, no cough present CHEST: Symmetrical movement, no accessory muscle use, good tidal volume, no pain to AP and lateral compression. ABDOMEN: Soft, no distention, no abdominal tenderness, no guarding or peritoneal signs, no organomegaly, no flank or suprapubic tenderness, active bowel tones. BACK: Normal curvature, nontender to palpation, no CVA tenderness on percussion EXTREMITIES: Band of redness swelling and tenderness medial left lower leg extending from approximately tibial tubercle extending down towards the ankle, most swelling and pain distally, moves all extremities, strength is 5/5, distal CMS intact, no thigh or calf tenderness negative Reid sign. NEUROLOGIC: AAO x4, no lateralizing neurologic deficits, cranial nerves II-XII grossly intact, sensation intact to light touch, hearing grossly normal to speech. PSYCH: Briskly responsive, linear thought process, cooperative, appropriate with stable behavior Objective Labs Result Diagrams: 10/12/20 16:40 10/12/20 16:40 Labs: Laboratory Results - last 24 hr 10/12/20 10/12/20 10/12/20 16:40 16:40 16:40 WBC 7.7 RBC 4.60 Hgb 14.2 Hct 41.8 MCV 90.9 MCH 31.0 MCHC 34.1 RDW 15.3 H Plt Count 227 Neut % (Auto) 66.4 Lymph % (Auto) 18.8 L [place] % (Auto) 12.4 Eos % (Auto) 1.7 L Baso % (Auto) 0.7 Neut # (Auto) 5100 Lymph # (Auto) 1500 [place] # (Auto) 1000 H Eos # (Auto) 100 Baso # (Auto) 100 PT 26.1 H INR 2.3 H APTT 38 H Sodium 138 Potassium 3.6 Chloride 106 Carbon Dioxide 25 BUN 17 Creatinine 1.23 Estimated GFR 56.5 L BUN/Creatinine Ratio 13.8 Glucose 233 H Calcium 9.1 Magnesium Total Bilirubin 0.4 AST 20 ALT 13 Alkaline Phosphatase 76 Total Protein 7.4 Albumin 3.8 Globulin 3.6 Albumin/Globulin Ratio 1.1 SARS-CoV-2 (PCR) 10/12/20 10/12/20 16:40 17:55 WBC RBC Hgb Hct MCV MCH MCHC RDW Plt Count Neut % (Auto) Lymph % (Auto) [place] % (Auto) Eos % (Auto) Baso % (Auto) Neut # (Auto) Lymph # (Auto) [place] # (Auto) Eos # (Auto) Baso # (Auto) PT INR APTT Sodium Potassium Chloride Carbon Dioxide BUN Creatinine Estimated GFR BUN/Creatinine Ratio Glucose Calcium Magnesium 2.2 Total Bilirubin AST ALT Alkaline Phosphatase Total Protein Albumin Globulin Albumin/Globulin Ratio SARS-CoV-2 (PCR) Negative Assessment & Plan Assessment & Plan narrative: This is an 80-year-old gentleman with a long history of protein S deficiency with recurrent thrombophlebitis presenting with an unprovoked episode today with pain starting for 3-4 days ago. The patient has been on Coumadin with no breaks therapy with his last INR 2.4 last week. 1. 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 -familial protein S deficiency, last episode evaluated in the ER in January 2019 when patient was off Coumadin for wrist surgery. -patient presents with 3-4 days increasing left leg pain worsening with walking, no history of trauma or provoking incident. Patient has been compliant with Coumadin therapy most recent INR 2.4 last week. -imaging finds nonocclusive clot in the left common femoral vein thought to be chronic and superficial thrombosis multiple calf varicosities. -will continue home regimen of Coumadin 7.5 mg daily and recheck INR in the morning. -heparin infusion initiated in the emergency department and continue infusion with serial monitoring per protocol. -will continue compression hose. 2. Hyperglycemia without a diagnosis of diabetes, unknown if acute or chronic, present on admission, active. -fingerstick blood sugars a.c. and hs with low-dose correctional insulin. -small consistent carbohydrate diet. -will obtain a hemoglobin A1c. 3. Hypertension, chronic, stable. -patient presents with a blood pressure 153/76 reporting pain 4/10. -will continue home regimen of amlodipine 5 mg daily. 4. History atrial fibrillation currently in sinus bradycardia, stable. -no reports of chest pain or palpitations. -patient is on no rate-controlling medication. Potassium is 3.6, obtained magnesium at 2.2. -will obtain a 12 lead EKG. VTE prophylaxis: Anticoagulated on Coumadin. IV fluid: Saline lock Diet: Consistent carbohydrate, heart healthy Code status: Full code, he designates his daughter Ella to be his surrogate decision maker. The patient is admitted to the hospital for an unprovoked superficial thromboembolism with a history of protein S deficiency with current therapeutic Coumadin level requiring further monitoring and evaluation to be event complications or adverse events. The patient is admitted as observation with expected length of stay to be less than 2 midnights. COVID-19 COVID-19 status: Negative Result date/Date tested (Pos, Neg/Pending): 10/12/20 Scores GCS [place] coma scale eye opening: Spontaneous Saba coma scale verbal response: Orientated Saba coma scale motor response: Obey commands Saba coma scale total score: 15
[2020-10-13 00:16] VITALS: BP 143/76; PULSE 60; RESP 16; TEMP 36.7; O2SAT 94
[2020-10-13 00:17] VITALS: O2SAT 94
[2020-10-13 01:57] LABS: PTT Partial Thromboplastin Tim 139 SECONDS (26.4-36.2)
[2020-10-13] MEDS: WARFARIN 5 MG TABLET 7.5 MG PO (03:24)
[2020-10-13 04:00] VITALS: BP 134/66; PULSE 61; RESP 18; TEMP 36.9; O2SAT 92
[2020-10-13 05:09] LABS: Add Manual Diff / Slide Review NO; Basophils Absolute Auto 100 /uL (0-100); Basophils Percent Auto 0.7 % (0-2); Eosinophils Absolute Auto 200 /uL (0-450); Eosinophils Percent Auto 2.5 % (2-4); Hematocrit 40.6 % (41-53); Hemoglobin 13.9 g/dL (13.5-17.5); INR 2.4 (0.9-1.3); Lymphocytes Absolute Auto 1900 /uL (1100-4500); Lymphocytes Percent Auto 23.5 % (25-40); Mean Corpuscular HGB Conc 34.3 % (30-36); Mean Corpuscular Hemoglobin 30.9 PG (26-34); Mean Corpuscular Volume 90.1 fL (80-100); Monocytes Absolute Auto 1300 /uL (0-900); Monocytes Percent Auto 16.3 % (3-14); Neutrophils Absolute Auto 4600 /uL (1500-7000); Platelet Count 206 X10^3/uL (150-400); Red Cell Distribution Width 15.1 % (11.6-14.8); White Blood Cell Count 8.1 X10^3/uL (4.5-11.0)
[2020-10-13 05:18] LABS: BUN Creatinine Ratio 16.4 (6-22); Blood Urea Nitrogen 18 mg/dL (9-20); Carbon Dioxide 28 mmol/L (22-32); Chloride 105 mmol/L (98-107); Estimated Glomerular Filt Rate > 60.0 mL/min (>60); Glucose 98 mg/dL (80-110); HEMOLYSIS < 15 (0-50); Magnesium 2.1 mg/dL (1.6-2.3); Potassium 3.9 mmol/L (3.4-5.1); Sodium 136 mmol/L (137-145)
[2020-10-13 08:00] VITALS: BP 137/71; PULSE 65; RESP 18; TEMP 37; O2SAT 93
[2020-10-13] MEDS: AMLODIPINE 5 MG TABLET PO (08:49)
[2020-10-13] MEDS: ASPIRIN EC 81 MG TABLET PO (08:49)
[2020-10-13 09:03] VITALS: O2SAT 92
[2020-10-13 09:34] LABS: PTT Partial Thromboplastin Tim 115 SECONDS (26.4-36.2)
--- NOTE | 2020-10-13 09:55 | P.DS_ITS ---
History of Present Illness History of Present Illness Date Patient Seen: 10/13/20 Time Patient Seen: 09:55 Chief complaint: states left leg DVT Narrative: As per JOCELYNE Rivers: Mr. 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 The patient states that his pain and swelling has been increasing over the last 3-4 days is consistent with prior presentation of his superficial thrombophlebitis of left leg. Denies complaints of shortness of breath no chest pain no nausea vomiting. He states he has had no missed doses of his Coumadin and his INR was 2.4 last week. He had a similar episode where he was seen in the emergency room in January 2019 after you have been off Coumadin for wrist surgery. Patient has been typically active walking 2.5 miles a day however he has had decreased ambulation over last few weeks now presenting with pain on walking. The patient has had no recent complaints of fevers or chills flu or cold symptoms and no known COVID-19 exposures. Denies headaches or dizziness nasal congestion or sore throat. He denies chest pain or pressure, denies palpitations, no shortness of breath, cough or wheezing. He reports no epigastric or abdominal pain and has no nausea vomiting or change in bowel or bladder habits. He does have chronic swelling of the left lower leg for which she uses a thigh-high compression stocking on the left side only. As stated the patient's typically active however less so in recent weeks. He has no other provocative events for reoccurrence of his t hrombophlebitis. The patient does add that received a 2nd [employer] COVID-19 vaccination on 10/01/2020. Upon arrival to the ER the patient is afebrile with temperature 97.5?, heart rate of 86, pressure 153/76, respirations 18 saturating 94% on room air. A venous ultrasound obtained which is positive for DVT, nonocclusive clot the left common femoral vein that appears chronic and superficial thrombophlebitis with multiple calf varicosities, no definite acute deep vein clot. CT of chest finds no PE, solid cystic appearing disease left lower lung, cardiomyopathy. On laboratory studies his white count of 7.7, hemoglobin 14.2, hematocrit of 41.8 and platelets of 227. He has a PT of 20.1, INR 2.3, PTT of 38. His chemistries are unremarkable though he has a potassium of 3.6. His BUN is 17 is creatinine 1.23. His glucose is 233. His EGFR is 56.2. His liver functions are all within normal limits with an human of a 3.8. Within history of atrial fibrillation 12 lead EKG is ordered as well as magnesium level. COVID-19 screening is negative. In the ER the patient is started on heparin drip without bolus since he has been on Coumadin. The patient is admitted to the hospitalist service for acute unprovoked superficial thrombophlebitis with chronic appearing common femoral vein DVT. Discharge Providers Provider Date of admission: 10/12/20 18:47 Discharge Date: 10/13/20 Primary care physician: Matthew Poe MD Consults: 10/12/20 20:24 Consult to Dietitian, Adult Routine Comment: Reason For Exam: Protein S deficiency, anticoagulation Coumadin,DVT Consult to Discharge Planning Routine Comment: 10/12/20 20:25 Consult to Physical Therapy Evaluate & Treat Comment: Physician Instructions: Evaluate and Treat Discharge provider: Kenneth Houston DO Summary Hospital Course Discharge Diagnosis: Please see below. Hospital Course: This is an 80-year-old gentleman with a long history of protein S deficiency with recurrent thrombophlebitis presenting with an unprovoked episode today with pain starting for 3-4 days ago. The patient has been on Coumadin with no breaks therapy with his last INR 2.4 last week. 1. 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 -familial protein S deficiency, last episode evaluated in the ER in January 2019 when patient was off Coumadin for wrist surgery. -patient presented with 3-4 days increasing left leg pain worsening with walking, no history of trauma or provoking incident. Patient has been compliant with Coumadin therapy most recent INR 2.4 last week. -imaging finds nonocclusive clot in the left common femoral vein thought to be chronic and superficial thrombosis multiple calf varicosities. DVT was present in previous imaging. Superficial venous thrombosis therapy is predominantly supportive. Recommend continued compression stockings and possible outpatient follow up with vascular surgery given this occurred on coumadin. He had no difficulties with ambulation during his brief stay. -INR controlled, continue home dosing of coumadin without changes. -CTA negative for PE. 2. Hyperglycemia without a diagnosis of diabetes, unknown if acute or chronic, present on admission, active. -improved the following morning on BMP. May be due to fluids or stress response. Recommend A1c with PCP. 3. Hypertension, chronic, stable. -no medication changes recommended. 4. paroxysmal atrial fibrillation currently in sinus bradycardia, stable. - on coumadin therapy, no medication changes are necessary. Exam Vital Signs (past 8 hours): - 10/13/20 04:00 10/13/20 08:00 10/13/20 09:03 Temperature 98.5 F 98.6 F Pulse Rate 61 65 Respiratory Rate 18 18 Blood Pressure 134/66 137/71 Pulse Oximetry 92 93 92 Oxygen Delivery Method Room Air Oxygen Flow Rate 0 Narrative Exam Narrative: GENERAL APPEARANCE: well developed, well nourished, in no acute distress. SKIN: [place], warm and dry, no visible lesions, rashes, ulcerations or petechiae. CV: regular rate and rhythm. Pulm: No respiratory distress, symmetrical chest movement. CHEST: Symmetrical movement, no accessory muscle use, good tidal volume, no pain to AP and lateral compression. EXTREMITIES: RLE with mild tenderness, no edema. compression stockings in place. Objective Labs Result Diagrams: 10/13/20 04:36 10/13/20 04:36 Labs: Laboratory Results - last 24 hr 10/12/20 10/12/20 10/12/20 16:40 16:40 16:40 WBC 7.7 RBC 4.60 Hgb 14.2 Hct 41.8 MCV 90.9 MCH 31.0 MCHC 34.1 RDW 15.3 H Plt Count 227 Neut % (Auto) 66.4 Lymph % (Auto) 18.8 L [place] % (Auto) 12.4 Eos % (Auto) 1.7 L Baso % (Auto) 0.7 Neut # (Auto) 5100 Lymph # (Auto) 1500 [place] # (Auto) 1000 H Eos # (Auto) 100 Baso # (Auto) 100 PT 26.1 H INR 2.3 H APTT 38 H Sodium 138 Potassium 3.6 Chloride 106 Carbon Dioxide 25 BUN 17 Creatinine 1.23 Estimated GFR 56.5 L BUN/Creatinine Ratio 13.8 Glucose 233 H Calcium 9.1 Magnesium Total Bilirubin 0.4 AST 20 ALT 13 Alkaline Phosphatase 76 Total Protein 7.4 Albumin 3.8 Globulin 3.6 Albumin/Globulin Ratio 1.1 SARS-CoV-2 (PCR) 10/12/20 10/12/20 10/13/20 16:40 17:55 01:23 WBC RBC Hgb Hct MCV MCH MCHC RDW Plt Count Neut % (Auto) Lymph % (Auto) [place] % (Auto) Eos % (Auto) Baso % (Auto) Neut # (Auto) Lymph # (Auto) [place] # (Auto) Eos # (Auto) Baso # (Auto) PT INR APTT 139 H* D Sodium Potassium Chloride Carbon Dioxide BUN Creatinine Estimated GFR BUN/Creatinine Ratio Glucose Calcium Magnesium 2.2 Total Bilirubin AST ALT Alkaline Phosphatase Total Protein Albumin Globulin Albumin/Globulin Ratio SARS-CoV-2 (PCR) Negative 10/13/20 10/13/20 10/13/20 04:36 04:36 04:36 WBC 8.1 RBC 4.50 Hgb 13.9 Hct 40.6 L MCV 90.1 MCH 30.9 MCHC 34.3 RDW 15.1 H Plt Count 206 Neut % (Auto) 57.0 Lymph % (Auto) 23.5 L [place] % (Auto) 16.3 H Eos % (Auto) 2.5 Baso % (Auto) 0.7 Neut # (Auto) 4600 Lymph # (Auto) 1900 [place] # (Auto) 1300 H Eos # (Auto) 200 Baso # (Auto) 100 PT 27.0 H INR 2.4 H APTT Sodium 136 L Potassium 3.9 Chloride 105 Carbon Dioxide 28 BUN 18 Creatinine 1.10 Estimated GFR > 60.0 BUN/Creatinine Ratio 16.4 Glucose 98 D Calcium 9.0 Magnesium 2.1 Total Bilirubin AST ALT Alkaline Phosphatase Total Protein Albumin Globulin Albumin/Globulin Ratio SARS-CoV-2 (PCR) 10/13/20 08:38 WBC RBC Hgb Hct MCV MCH MCHC RDW Plt Count Neut % (Auto) Lymph % (Auto) [place] % (Auto) Eos % (Auto) Baso % (Auto) Neut # (Auto) Lymph # (Auto) [place] # (Auto) Eos # (Auto) Baso # (Auto) PT INR APTT 115 H* D Sodium Potassium Chloride Carbon Dioxide BUN Creatinine Estimated GFR BUN/Creatinine Ratio Glucose Calcium Magnesium Total Bilirubin AST ALT Alkaline Phosphatase Total Protein Albumin Globulin Albumin/Globulin Ratio SARS-CoV-2 (PCR) [facility] Medical History (Updated 10/12/20 @ 23:18 by JOCELYNE Rivers) Atrial fibrillation Current use of terminal carman anticoagulation DVT (deep venous thrombosis) Left leg swelling Protein S deficiency Superficial thrombophlebitis Surgical History (Updated 10/12/20 @ 23:19 by JOCELYNE Rivers) History of carpal tunnel surgery History of total knee arthroplasty Family History (Updated 10/12/20 @ 23:21 by JOCELYNE Rivers) Father No significant past medical history Mother Protein S deficiency Son Protein S deficiency Brother Protein S deficiency Pulmonary embolism Social History household members: none Smoking Status: Former smoker Discharge Plan Discharge Plan Patient Disposition: Home Provider Discharge Comment: You were admitted to the hospital with swelling. You have a chronic DVT and superficial thrombophlebitis. The phlebitis is treated with supportive care. Please follow up with your PCP for further evaluation of the thrombophlebitis. You should continue on your coumadin dosing. Consider follow up with a vascular surgeon through your PMD. Discharge orders & Medications Prescriptions: Continued amlodipine 5 mg tablet 5 mg PO DAILY RF: 0 warfarin 7.5 mg Tablet 7.5 mg PO DAILY RF: 0 diphenhydramine HCl [Benadryl] 25 mg Capsule 25 mg PO DAILY RF: 0 cholecalciferol (vitamin D3) [Vitamin D3] 25 mcg (1,000 unit) Tablet 25 mcg PO DAILY RF: 0 vit A-vit C-vit [id number] Tablet 1 tab PO DAILY RF: 0 Follow up/Referrals: Matthew Poe MD [Primary Care Provider] - Diet/Activity/Treatments Diet: Diet as Tolerated Activity: As tolerated Visit Report/Discharge Packet Instructions: Superficial Thrombophlebitis Discharge Data Primary Care Provider: Matthew Poe Attending Provider: Cory Barber
--- NOTE | 2020-10-13 10:20 | PT-IP ANOTE ---
Pt was discussed in interdisciplinary rounds. No acute PT needs. Will d/c orders.
--- NOTE | 2020-10-13 10:22 | PC.NURSE ---
Went over dc instructions and medications with patient, questions answered, no new medications. Patient to follow up with his PCP, no follow up made at this time. Patient walked to emergency dept to drive home, patient had all belongings.
--- NOTE | 2020-10-13 16:45 | CM.DANOTE ---
DCP ASSESSMENT: Patient is an 80 year-old male admitted to the hospitalist service for acute unprovoked superficial thrombophlebitis with chronic appearing common femoral vein DVT. Per chart review PCP is Matthew Poe. Primary payer is Medicare and [employer] PT evaluation was canceled this date during interdisciplinary rounds. Patient D/C from hospital prior to initiation of the discharge assessment. Per chart review he lives alone and is independent with ADL?s including driving as his plan was to drive himself home from hospital. BENJAMÍN Leon MSW Student
== END 2020-10-13 10:24 | disposition home or self-care (01) ==
LOC: ED 18:44 → AC 18:55
PROVIDERS: Nurse Practitioner Adult Health; Admitting Provider Internal Medicine; Emergency Provider Nurse Practitioner Family; Family Provider Family Medicine; PCP Family Medicine; Referring Provider Nurse Practitioner Family; Visit Provider Internal Medicine
DX: I80.12 Phlebitis and thrombophlebitis of left femoral vein (principal); I80.02 Phlebitis and thrombophlebitis of superficial vessels of left lower extremity; D68.59 Other primary thrombophilia; I48.0 Paroxysmal atrial fibrillation; I10 Essential (primary) hypertension; R73.9 Hyperglycemia, unspecified; F17.210 Nicotine dependence, cigarettes, uncomplicated; Z79.01 Long term (current) use of anticoagulants; Z20.822 Contact with and (suspected) exposure to COVID-19
CPT/HCPCS: 36415; 71275; 80048; 80053; 82962; 83735; 85025; 85610; 85730; 87635; 93005; 93971; 94762; 96365; 96366; 99283; 99284; C9803; G0378; J1644; Q9967

== ENCOUNTER → 2021-01-21 10:29 | Outpatient (CLI) | payer MEDICARE, OTHER, SELFPAY ==
[2020-10-12 19:48] VITALS: BMI 23.6
--- NOTE | 2021-01-21 | DI.US.S_ITS ---
PROCEDURE: US PERIP VENOUS LOW EXTREM BI INDICATIONS: Cellulitis of other sites TECHNIQUE: Real-time imaging, as well as color and pulse Doppler interrogation, were performed of the deep veins of both legs from the inguinal ligament to the popliteal fossa. COMPARISON: [facility], [facility] VENOUS LOW EXTREM LT, 10/12/2020, 17:12. [facility], PERIP VENOUS LOW EXTREM RT, 02/16/2019, 20:23. FINDINGS: Right: The common femoral, femoral and popliteal veins are normally compressible, and free of intraluminal thrombus. Color and pulse Doppler demonstrate normal phasic intravascular flow. There is normal augmentation response to distal compression maneuver. Left: There is mild nonocclusive likely chronic thrombus within the proximal superficial femoral vein on the left. Additionally, thrombosed varices are found within the superficial soft tissues on the left. IMPRESSION: Normal appearing right lower extremity deep venous system. Mild chronic appearing partially occlusive left superficial femoral vein thrombus identified. There are thrombosed superficial varicosities within the area of the left leg that is identified by the patient as firm in texture. Dictated by: Lm Steen M.D. on 01/21/2021 at 13:38 Approved by: Lm Steen M.D. on 01/21/2021 at 13:43
== END ==
PROVIDERS: Family Provider Family Medicine; PCP Family Medicine; Referring Provider Family Medicine; Visit Provider Family Medicine
DX: I82.812 Embolism and thrombosis of superficial veins of left lower extremity (principal); L03.818 Cellulitis of other sites
CPT/HCPCS: 93970

== ENCOUNTER → 2023-01-24 08:34 | Outpatient (CLI) | payer MEDICARE, OTHER, SELFPAY ==
[2020-10-12 19:48] VITALS: BMI 23.6
--- NOTE | 2023-01-24 | DI.US.S_ITS ---
PROCEDURE: US ABDOMEN LIMITED INDICATIONS: LEFT GROIN LUMP ?HERNIA TECHNIQUE: Real-time focused scanning was performed of the inguinal region, with image documentation. COMPARISON: None. FINDINGS: Targeted ultrasound of the left groin demonstrates a fat containing, partially reducible hernia measuring 2.3 x 0.9 centimeter. IMPRESSION: Left inguinal hernia measuring 2.3 x 0.9 centimeter. Dictated by: Wesly Meyers M.D. on 01/24/2023 at 9:46 Approved by: Wesly Meyers M.D. on 01/24/2023 at 9:47
== END ==
PROVIDERS: Family Provider Family Medicine; PCP Family Medicine; Referring Provider Family Medicine; Visit Provider Family Medicine
DX: K40.30 Unilateral inguinal hernia, with obstruction, without gangrene, not specified as recurrent
CPT/HCPCS: 76705

== ENCOUNTER 2023-03-04 11:00 | Day surgery (SDC) | payer MEDICARE, OTHER, SELFPAY ==
[2020-10-12 19:48] VITALS: BMI 23.6
[2023-03-01 16:27] VITALS: BMI 22.8
[2023-03-04] VITALS (9 sets, daily range): BP systolic 118–149; BP diastolic 68–91; PULSE 70–98; RESP 15–23; TEMP 36.4–36.8; O2SAT 92–97; BMI 22.8
[2023-03-04 11:43] LABS: INR 1.3 (0.9-1.3); Prothrombin Time 15.5 SECONDS (10.1-12.7)
[2023-03-04] MEDS: LACTATED RINGERS 1,000 ML 100 ML IV (12:04)
--- NOTE | 2023-03-04 12:29 | PM.PREOP ---
Pre-operative Note Interval Note History & Physical reviewed/Exam performed by Physician: Yes Changes to H&P: No
[2023-03-04] MEDS: CEFAZOLIN 2 GM/100 ML PREMIX 100 ML IV (13:45)
--- NOTE | 2023-03-04 14:01 | SUR.OPER ---
Supine on padded OR bed, head on pillow, arms padded and tucked at sides, legs uncrossed, safety belt at thigh, tape over blanket over lower legs .
--- NOTE | 2023-03-04 14:03 | PM.AN.INVM ---
Invasive Monitor Note Procedure Procedure: Arterial Catheter Insertion Start Time: 13:10 Stop Time: 13:31 Indication: Intraoperative Hemodynamic Monitoring (Severe aortic stenosis, 0.7cm2, mean 44mmHg, 4.4m/s) Timeout: 13:15 Barrier Precautions Utilized: Cap, Mask, Hand Hygiene, 2% Chlorhexidine Cutaneous Antisepsis, Sterile Gloves and Maintenance of Sterile Field Vessel Utilized: Radial Artery: Left Lines Catheters Utilized: 22 G Arrow Arterial Catheter Insertion Site Care: Sterile Occlusive Dressing Applied Ultrasound Ultrasound Guidance Utilized: Yes Ultrasound was used to identify the vessel. Assessed vessel was patent.: Radial Artery Ultrasound was used to visualize vascular needle entry into the: Radial Artery Limited exam reveals anatomically normal vessel with no apparent abnormal findings.: Yes Permanent ultrasound image obtained and interpretation documented.: No Complications Complications: none
[2023-03-04] MEDS: BUPIVACAINE 0.25% (PF) VIAL 30 ML INJ (14:05)
--- NOTE | 2023-03-04 15:14 | PM.OP.1 ---
Operative Date/Time/Diagnoses Date of procedure: 03/04/23 Time of procedure: 15:14 Pre-op diagnosis: Bilateral inguinal hernia Post-op diagnosis: same Procedure & Clinicians Procedure: Laparoscopic repair of bilateral hernia (CASSIUS) Same procedure as scheduled: Yes Indications: Symptomatic bilateral reducible inguinal hernia Surgeon: Mk Alvarez Anesthesia Type: General Operative Notes Findings: Bilateral direct inguinal hernia no indirect hernias Estimated Blood Loss (mL): 10 Procedure in detail: The patient was brought to the operating room and placed supine on the table. Bilateral sequential compression devices were applied. General anesthesia was induced and they were intubated with an endotracheal tube. A chan cath was placed in sterile fashion. They received Ancef prior to skin incision. They were prepped and draped in sterile fashion. A time out was performed to ensure the correct patient, procedure and necessary equipment within the operating room. The skin was infiltrated with 0.25% bupivicaine. A 1 cm supra umbilical midline incision was made. The fascia was sharply incised and the abdomen entered traumatically. A 10mm balloon port was placed and pneumoperitoneum was established at 15mm Hg. Inspection of the abdomen demonstrated no evidence of injury upon entry. Two 5 mm ports were then placed under direct visualization in the right and left lower quadrant lateral to the rectus muscle. A right and left direct hernias were observed. Starting on the left side the peritoneum 4 cm superior to the deep inguinal ring between the medial umbilical ligament and the anterior superior iliac spine was incised. The medial preperitoneal dissection was carried out into the space of Retzius bluntly, the bladder was swept inferiorly, the pubis and Tadeo's ligament were identified. Next attention was turned towards the lateral aspect of the peritoneal flap. The preperitoneal fat with the testicular vessels was carefully dissected off the inferior peritoneal flap. The cord was carefully inspected there was no evidence indirect hernia or cord lipoma. The attachements to the direct hernia sac were divided and the direct defect was reduced. A large Bard 3D Max mesh was then placed into the abdomen and positioned such that the myopectineal orifice was completely covered with good overlap on all sides. The peritoneal flap was then repositioned back to its original position and a running V lock suture was used to close the peritoneum such that no bowel could herniate into the preperitoneal space. The area was examined for hemostasis. Next the right side was addressed. The peritoneum 4 cm superior to the deep inguinal ring between the medial umbilical ligament and the anterior superior iliac spine was incised. The medial preperitoneal dissection was carried out into the space of Retzius bluntly, the bladder was swept inferiorly, the pubis and Tadeo's ligament were identified. Next attention was turned towards the lateral aspect of the peritoneal flap. The preperitoneal fat with the testicular vessels was carefully dissected off the inferior peritoneal flap. The cord was carefully inspected there was no evidence of indirect defect or cord lipoma. The attachements to the direct hernia sac were divided and the direct defect was reduced. A large Bard 3D Max mesh was then placed into the abdomen and positioned such that the myopectineal orifice was completely covered with good overlap on all sides. The peritoneal flap was then repositioned back to its original position and a running V lock suture was used to close the peritoneum such that no bowel could herniate into the preperitoneal space. The area was examined for hemostasis. The 5mm trocars were removed under direct visualization and pneumoperitoneum was deflated through the umbilical trocar, The fascia at the umbilicus was closed with 0-Vicryl in figure of 8 fashion, skin closed with 4-0 Monocyl followed by Dermabond. The sponge and instrument count at the end of the case was correct. Both testicles were entirely within the scrotum at the end of the case. The patient emerged from anesthsia was extubated and transferred to recovery in stable condition. Complications: none Post-operative Condition: stable Disposition: same day surgery
[2023-03-04] MEDS: HYDROMORPHONE 2 MG INJ IV (15:16)
[2023-03-04] MEDS: OXYCODONE IR 5 MG TABLET PO ×2 (16:14→17:30)
[2023-03-04] MEDS: ALBUTEROL/IPRATROPIUM 3 ML AMPUL INH (16:39)
== END 2023-03-04 17:32 | disposition home or self-care (01) ==
PROVIDERS: Family Provider Family Medicine; PCP Family Medicine; Referring Provider Surgery; Visit Provider Surgery
PROC: 0YQ64ZZ Repair Left Inguinal Region, Percutaneous Endoscopic Approach (ICD-10-PCS; CPT 49650; principal; 2023-03-04 12:30)
DX: K40.20 Bilateral inguinal hernia, without obstruction or gangrene, not specified as recurrent (principal)
CPT/HCPCS: 49650; 36415; 85610; J0690; J1100; J1170; J2250; J2405; J2704; J3010

== ENCOUNTER → 2023-07-19 11:29 | Outpatient (CLI) | payer MEDICARE, OTHER, SELFPAY ==
[2020-10-12 19:48] VITALS: BMI 23.6
--- NOTE | 2023-07-19 | DI.RAD.S_ITS ---
PROCEDURE: XR CHEST 2V INDICATIONS: atrial fibrillation TECHNIQUE: 2 views of the chest were acquired. COMPARISON: [facility], , CHEST 1 VIEW, 06/04/2015, 12:50. FINDINGS: Surgical changes and devices: None. Lungs and pleura: Lungs are clear. No pleural effusions or pneumothorax. Mediastinum: Mediastinal contours are normal. Heart size is enlarged. Bones and chest wall: No suspicious bony abnormalities. Soft tissues appear unremarkable. IMPRESSION: No acute pulmonary process. Dictated by: Abida Becker M.D. on 07/19/2023 at 15:58 Approved by: Abida Becker M.D. on 07/19/2023 at 15:59
--- NOTE | 2023-07-19 11:33 | DI.CT.S_ITS ---
PROCEDURE: CT LUMBAR SPINE WO CON INDICATIONS: Dorsalgia, Low back pain TECHNIQUE: Noncontrast 3 mm thick sections acquired from the T12 level to the sacrum. Sagittal and coronal reformats were constructed. For radiation dose reduction, the following was used: automated exposure control. COMPARISON: [facility], CT, CT THORACIC SPINE WO CON, 07/19/2023, 11:38. FINDINGS: Image quality: Excellent. Bones: No acute vertebral body compression fractures. No suspicious lytic or blastic bony lesions. No pars defects. There is mild retrolisthesis seen at the L1-L2 level. T12-L1: Normal. L1-L2: Moderate loss of disc height is seen. Vacuum disc phenomenon is seen at this level. Moderate generalized disc bulge is seen. At least moderate bilateral neural foraminal narrowing is seen. Mild central canal narrowing is seen. L2-L3: The disc height is well preserved. Mild to moderate disc bulge is seen. Moderate bilateral neural foraminal narrowing is seen. Moderate central canal narrowing is seen. L3-L4: The disc height is well preserved. Remote Schmorl's nodes can be seen involving the inferior endplate of L3 and the superior endplate of L4. Partially bridging anterior osteophytes are seen. Moderate generalized disc bulge is seen. Mild facet joint hypertrophy is seen. At least moderate bilateral neural foraminal narrowing can be seen. Moderate central canal narrowing is seen. L4-L5: The disc height is well preserved. Moderate generalized disc bulge is seen. At least moderate facet hypertrophy is seen, right worse than left. There is at least moderate bilateral neural foraminal narrowing seen, right worse than left. Moderate central canal narrowing is seen. L5-S1: The disc height is well preserved. Mild generalized disc bulge is seen. At least moderate facet hypertrophy is seen. No significant neural foraminal or central canal narrowing can be seen. Soft tissues: No retroperitoneal masses or hematomas. Visualized aorta is normal in caliber. Atherosclerotic calcification is noted. Water density renal cysts are seen on both sides. IMPRESSION: Multiple levels of lumbar spine degenerative change can be seen, which are overall worst at L3-L4 and L4-L5. Additional findings: Advanced atherosclerotic calcification Bilateral water density renal cysts Dictated by: Osvaldo Barahona M.D. on 07/19/2023 at 15:46 Approved by: Osvaldo Barahona M.D. on 07/19/2023 at 15:50
--- NOTE | 2023-07-19 11:33 | DI.CT.S_ITS ---
PROCEDURE: CT THORACIC SPINE WO CON INDICATIONS: Dorsalgia, Low back pain TECHNIQUE: Noncontrast 3 mm thick sections acquired through the region of interest in the thoracic spine. Sagittal and coronal reformats were then constructed. For radiation dose reduction, the following was used: automated exposure control. COMPARISON: [facility], CT, CT ANGIO CHEST PE PROTOCOL, 10/12/2020, 17:52. [facility], CT, CT LUMBAR SPINE WO CON, 07/19/2023, 11:38. [facility], CR, XR CHEST 2V, 07/19/2023, 12:44. FINDINGS: Image quality: Excellent. Bones: No acute vertebral body compression fractures. No suspicious sclerotic or lytic bony lesions. Central spinal canal is of normal overall caliber. Minimal levoconvex scoliotic curvature is seen. Accentuated thoracic kyphosis is seen. Focal lower cervical spine degenerative changes are seen, with moderate to severe disc space narrowing at C6-C7. Generalized thoracic spine degenerative changes are seen, with several levels of reyh-qk-tvguukml disc space narrowing. No significant central canal narrowing is seen. Soft tissues: No paravertebral masses or hematomas. Small bilateral pleural effusions are seen. Mild persistent consolidation can be seen involving the right posterior costophrenic angle. Mild underlying emphysematous changes are seen. Atherosclerotic calcification is noted, including prominent coronary artery calcification. IMPRESSION: Age-appropriate thoracic spine degenerative changes are seen. Small bilateral pleural effusions can be seen. Mild persistent consolidation can be seen involving the right posterior costophrenic angle. Although nonspecific, there is suspicion for atelectasis or fibrotic change. Differential diagnosis includes neoplasm, yet this is considered to be less likely. Additional findings: Advanced atherosclerotic calcification, including involving the coronary arteries Dictated by: Osvaldo Barahona M.D. on 07/19/2023 at 15:19 Approved by: Osvaldo Barahona M.D. on 07/19/2023 at 15:38
== END ==
PROVIDERS: Family Provider Family Medicine; PCP Family Medicine; Referring Provider Family Medicine; Visit Provider Family Medicine
DX: I48.91 Unspecified atrial fibrillation (principal); M54.50 Low back pain, unspecified; M54.9 Dorsalgia, unspecified; J90 Pleural effusion, not elsewhere classified; M47.814 Spondylosis without myelopathy or radiculopathy, thoracic region; I25.10 Atherosclerotic heart disease of native coronary artery without angina pectoris
CPT/HCPCS: 71046; 72128; 72131

== ENCOUNTER → 2023-08-03 12:06 | Outpatient (CLI) | payer MEDICARE, OTHER, SELFPAY ==
[2020-10-12 19:48] VITALS: BMI 23.6
--- NOTE | 2023-08-03 | DI.CT.S_ITS ---
PROCEDURE: CT LUNG LOW DOSE SCREENING INDICATIONS: history of nicotine dependence TECHNIQUE: Noncontrast 2.0-2.5 mm thick sections acquired from the pulmonary apices to the posterior costophrenic angles. 7 mm thick axial MIP, and 5 mm coronal and sagittal reformats were then acquired. For radiation dose reduction, the following was used: automated exposure control, adjustment of mA and/or kV according to patient size. COMPARISON: None. FINDINGS: Image quality: Diagnostic. Lower Neck: No enlarged lymph nodes. Thyroid: No thyroid nodules which require sonographic follow up, per consensus guidelines. Axillae: No enlarged lymph nodes. Chest Wall: Unremarkable. Bones: Prior sternal fracture. Lungs and Pleura: No pneumothorax. Trace left pleural fluid. Mild emphysematous change. Mild opacity at the right lung base is similar. Suspect round atelectasis. Linear appearance on the coronal images. No mass or significant pulmonary nodules. A few calcified granulomas. The central airways are clear. No nodule in the right mainstem bronchus. Heart: Heart size is normal. Severe coronary artery calcifications. Mitral annular calcification. No pericardial effusion. Thoracic Vessels: The aorta and pulmonary arteries demonstrate normal size. Mediastinum and Keely: No enlarged lymph nodes. Calcified right hilar lymph node. Esophagus: No wall thickening. No hiatal hernia. Upper Abdomen: Visualized upper abdomen solid organs and bowel loops appear normal. Left renal cyst is similar. IMPRESSION: 1. No significant pulmonary nodules. LUNG-RADS 1; recommend follow-up lung cancer screening chest CT in 12 months. 2. Severe coronary artery calcifications. 3. Trace left pleural fluid. Suspect right lung base round atelectasis, similar. Dictated by: Adam Chamberlain M.D. on 08/03/2023 at 13:25 Approved by: Adam Chamberlain M.D. on 08/03/2023 at 13:33
== END ==
PROVIDERS: Family Provider Family Medicine; PCP Family Medicine; Referring Provider Family Medicine; Visit Provider Family Medicine
DX: Z87.891 Personal history of nicotine dependence (principal); Z12.2 Encounter for screening for malignant neoplasm of respiratory organs; I25.10 Atherosclerotic heart disease of native coronary artery without angina pectoris
CPT/HCPCS: 71250; 71271

== ENCOUNTER 2024-05-03 08:30 | Outpatient (RCR) | payer MEDICARE, OTHER, SELFPAY ==
[2020-10-12 19:48] VITALS: BMI 23.6
== END 2024-05-03 12:14 ==
LOC: CAR 08:30
PROVIDERS: Family Provider Family Medicine; PCP Family Medicine; Referring Provider Internal Medicine Interventional Cardiology; Visit Provider Internal Medicine Interventional Cardiology
DX: Z95.2 Presence of prosthetic heart valve (principal); Z95.5 Presence of coronary angioplasty implant and graft
CPT/HCPCS: 93798

== ENCOUNTER → 2024-06-29 11:33 | Outpatient (CLI) | payer MEDICARE, OTHER, SELFPAY ==
[2020-10-12 19:48] VITALS: BMI 23.6
--- NOTE | 2024-06-29 11:38 | DI.RAD.S_ITS ---
PROCEDURE: XR CHEST 2V INDICATIONS: unspecified cough TECHNIQUE: 2 views of the chest were acquired. COMPARISON: [facility], CR, XR CHEST 2V, 07/19/2023, 12:44. FINDINGS: Heart, mediastinum and pulmonary vasculature: Heart is normal in size and configuration. 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 Pulmonary vascular is normal. Lungs: Moderate infiltrate is seen in the posterior right lower lobe . Pleural spaces: Small right pleural effusion. Bones and soft tissues: Normal IMPRESSION: Moderate right lower lobe infiltrate , likely pneumonia , with small right pleural effusion. Dictated by: Chano Johnson M.D. on 07/02/2024 at 7:04 Approved by: Chano Johnson M.D. on 07/02/2024 at 7:06
== END ==
LOC: RAD 11:35
PROVIDERS: Family Provider Family Medicine; PCP Family Medicine; Referring Provider Family Medicine; Visit Provider Family Medicine
DX: J90 Pleural effusion, not elsewhere classified (principal); R05.9 Cough, unspecified; R91.8 Other nonspecific abnormal finding of lung field
CPT/HCPCS: 71046

== ENCOUNTER → 2024-07-20 10:27 | Outpatient (CLI) | payer MEDICARE, OTHER, SELFPAY ==
[2020-10-12 19:48] VITALS: BMI 23.6
--- NOTE | 2024-07-20 10:33 | DI.RAD.S_ITS ---
PROCEDURE: XR CHEST 2V INDICATIONS: Atelectasis TECHNIQUE: 2 views of the chest were acquired. COMPARISON: [facility], CR, XR CHEST 2V, 06/29/2024, 11:40. FINDINGS: Surgical changes and devices: Prosthetic aortic valve is seen.. Lungs and pleura: There is pulmonary vascular congestion. Ill-defined airspace opacity in right lower lung field is seen. Mild pulmonary edema is also likely present. No pleural effusions or pneumothorax. Mediastinum: Mediastinal contours are normal. Heart size is normal. Bones and chest wall: No suspicious bony abnormalities. Soft tissues appear unremarkable. IMPRESSION: Persistent mild pulmonary vascular congestion with small infiltrate versus atelectasis in right lower lung field. No pleural effusion or pneumothorax. Dictated by: Ham Hagen M.D. on 07/20/2024 at 13:19 Approved by: Ham Hagen M.D. on 07/20/2024 at 13:20
== END ==
PROVIDERS: Family Provider Family Medicine; PCP Family Medicine; Referring Provider Family Medicine; Visit Provider Family Medicine
DX: J98.11 Atelectasis (principal)
CPT/HCPCS: 71046

== ENCOUNTER → 2024-09-13 10:10 | Outpatient (CLI) | payer MEDICARE, OTHER, SELFPAY ==
[2020-10-12 19:48] VITALS: BMI 23.6
--- NOTE | 2024-09-13 10:13 | DI.RAD.S_ITS ---
PROCEDURE: XR CHEST 2V INDICATIONS: HEART FAILURE TECHNIQUE: 2 views of the chest were acquired. COMPARISON: [facility], CR, XR CHEST 2V, 07/20/2024, 10:33. FINDINGS: Heart, mediastinum and pulmonary vascular: Heart is normal in size. Heavy mitral annular calcification noted. Endograft is present the ascending thoracic aorta. No complication. Mediastinum is unremarkable. Pulmonary vascular is normal. Lungs: Small right lower lobe infiltrate is unchanged from exam nearly 2 months ago Pleural spaces: Small right pleural effusion unchanged Bones and soft tissues: Normal IMPRESSION: Small right lower lobe infiltrate unchanged from exam nearly 2 months ago Dictated by: Cahno Johnson M.D. on 09/14/2024 at 11:44 Approved by: Chano Johnson M.D. on 09/14/2024 at 11:46
== END ==
PROVIDERS: Family Provider Family Medicine; PCP Family Medicine; Referring Provider Family Medicine; Visit Provider Family Medicine
DX: I35.0 Nonrheumatic aortic (valve) stenosis (principal); J90 Pleural effusion, not elsewhere classified; I50.9 Heart failure, unspecified; R91.8 Other nonspecific abnormal finding of lung field; I34.81 Nonrheumatic mitral (valve) annulus calcification
CPT/HCPCS: 71046

== ENCOUNTER 2024-10-03 20:39 | Emergency (ER) | payer MEDICARE, OTHER, SELFPAY ==
[2020-10-12 19:48] VITALS: BMI 23.6
[2024-10-03 21:05] VITALS: BP 140/68; PULSE 82; RESP 12; TEMP 36.9; O2SAT 92; BMI 20.3
== END 2024-10-04 00:55 | disposition left against medical advice (07) ==
PROVIDERS: Emergency Provider Emergency Medicine; Family Provider Family Medicine; PCP Family Medicine
DX: S01.319A Laceration without foreign body of unspecified ear, initial encounter (principal)
CPT/HCPCS: 99281

== ENCOUNTER → 2024-11-15 11:25 | Outpatient (CLI) | payer MEDICARE, OTHER, SELFPAY ==
[2020-10-12 19:48] VITALS: BMI 23.6
--- NOTE | 2024-11-15 | DI.RAD.S_ITS ---
PROCEDURE: XR CHEST 2V INDICATIONS: BACK PAIN TECHNIQUE: 2 views of the chest were acquired. COMPARISON: [facility], CT, CT CHEST WO CON, 08/03/2023, 12:15. [facility], CR, XR CHEST 2V, 09/13/2024, 10:16. [facility], CR, XR CHEST 2V, 07/20/2024, 10:33. FINDINGS AND IMPRESSION: Eroc-oa-lhnhawgn thoracic spinal degenerative changes. Possible age-indeterminate endplate deformity, mild, seen in the mid lumbar spine partially within the field of view No definite acute fracture elsewhere. If there is high concern for further derangement, consider MRI evaluation. Overall similar ill-defined opacities in the left perihilar and right lower lung region. A chest CT follow-up is reasonable depending on clinical context. No pleural effusions. Normal heart size. Aortic valve replacement Dictated by: Alberto Tavarez M.D. on 11/16/2024 at 13:22 Approved by: Alberto Tavarez M.D. on 11/16/2024 at 13:25
--- NOTE | 2024-11-15 11:28 | DI.RAD.S_ITS ---
PROCEDURE: XR THORACIC SPINE 3V INDICATIONS: LOW BACK PAIN TECHNIQUE: 3 views of the thoracic spine were acquired. COMPARISON: [facility], , THORACIC SPINE 3 VIEWS, 06/02/2016, 13:28. FINDINGS AND IMPRESSION: Partially seen endplate deformity at L4, age-indeterminate. Jigk-kj-gvmemblb degenerative changes of the thoracolumbar spine, with disc space height loss, osteophytes, facet arthropathy at multiple levels. If there is high concern for further derangement, consider MRI evaluation. Partially seen moderate spondylosis also seen in the cervical spine. Chest findings are separately dictated. Dictated by: Alberto Tavarez M.D. on 11/16/2024 at 13:25 Approved by: Alberto Tavarez M.D. on 11/16/2024 at 13:27
== END ==
PROVIDERS: Family Provider Family Medicine; PCP Family Medicine; Referring Provider Family Medicine; Visit Provider Family Medicine
DX: I50.22 Chronic systolic (congestive) heart failure (principal); M47.814 Spondylosis without myelopathy or radiculopathy, thoracic region; M54.50 Low back pain, unspecified; Z95.2 Presence of prosthetic heart valve
CPT/HCPCS: 71046; 72072

== ENCOUNTER → 2025-01-23 11:10 | Outpatient (CLI) | payer MEDICARE, OTHER, SELFPAY ==
[2020-10-12 19:48] VITALS: BMI 23.6
--- NOTE | 2025-01-23 11:20 | DI.RAD.S_ITS ---
PROCEDURE: XR T AND L SPINE 2 TO 3 VIEWS INDICATIONS: BACK PAIN TECHNIQUE: 2 views acquired of the thoracolumbar spine. COMPARISON: [facility], CR, XR THORACIC SPINE 3V, 11/15/2024, 11:43. FINDINGS: Bones: Chronic appearing mild anterior wedge compression deformity is seen at L4 level unchanged from prior studies. Moderate spondylitic changes throughout thoracic and lumbar spine. No acute vertebral body compression fracture. Soft tissues: No suspicious soft tissue calcifications. Prosthetic aortic valve is seen. IMPRESSION: Chronic appearing anterior wedge compression deformity involving superior endplate of L4. Moderate spondylitic changes throughout thoracic and lumbar spine. No acute vertebral body compression fractures. Dictated by: Ham Hagen M.D. on 01/23/2025 at 20:27 Approved by: Ham Hagen M.D. on 01/23/2025 at 20:32
== END ==
PROVIDERS: Family Provider Family Medicine; PCP Family Medicine; Referring Provider Family Medicine; Visit Provider Family Medicine
DX: M54.50 Low back pain, unspecified (principal); I50.22 Chronic systolic (congestive) heart failure; M47.814 Spondylosis without myelopathy or radiculopathy, thoracic region; M47.816 Spondylosis without myelopathy or radiculopathy, lumbar region; M43.8X6 Other specified deforming dorsopathies, lumbar region
CPT/HCPCS: 72082